=== PATIENT | male | born 1980 | race Caucasian/White ===

== ENCOUNTER 2018-04-24 21:19 | Emergency (ER) | payer MEDICAID, SELFPAY ==
[~2018-04-24] VITALS: Ht 180.3 cm; Wt 95.9 kg
[2018-04-24] MEDS ORDERED: HYDROcodone/APAP 5/325 TABLET ONE (21:42)
[2018-04-24] MEDS ORDERED: LIDOCAINE-MPF 1%, 2ML ONE (21:57)
[2018-04-24 22:00] VITALS: BP 153/98
[2018-04-24] MEDS ORDERED: HYDROcodone/APAP 5/325 TABLET PO PRN (22:00)
[2018-04-24] MEDS ORDERED: LIDOCAINE-MPF 1%, 5ML INFIL ONE (22:00)
== END 2018-04-24 23:41 | disposition home or self-care (01) ==
LOC: ED 23:30
DX: S06.0X0A Concussion without loss of consciousness, initial encounter (principal); S01.21XA Laceration without foreign body of nose, initial encounter; G89.11 Acute pain due to trauma; V49.49XA Driver injured in collision with other motor vehicles in traffic accident, initial encounter; Y93.89 Activity, other specified; Y92.89 Other specified places as the place of occurrence of the external cause; Y99.8 Other external cause status
CPT/HCPCS: 12051; 13152; 70450; 70486; 72125; 99285

== ENCOUNTER 2018-05-02 10:36 | Emergency (ER) | payer MEDICAID ==
[~2018-05-02] VITALS: Ht 180.3 cm; Wt 98.0 kg
[2018-05-02 10:39] VITALS: BP 145/91
== END 2018-05-02 11:12 | disposition home or self-care (01) ==
LOC: ED 10:55
DX: S01.21XD Laceration without foreign body of nose, subsequent encounter (principal); V89.2XXD Person injured in unspecified motor-vehicle accident, traffic, subsequent encounter
CPT/HCPCS: 99282